=== PATIENT | female | born 1975 | race African-American/Black ===

== ENCOUNTER 2019-05-07 05:27 | Emergency (ER) | payer OTHER ==
[~2019-05-07] VITALS: Ht 175.3 cm; Wt 113.4 kg
[2019-05-07 05:34] VITALS: BP 151/88
[2019-05-07 06:57] LABS: Basophils # (auto) 0.1 uL; Eosinophils # (auto) 0.1 uL; Lymphocytes # (auto) 1.1 uL; Monocytes # (auto) 0.8 uL
[2019-05-07 06:58] LABS: Basophils % (auto) 0.8 % (0.0-2.0); Eosinophils % (auto) 1.1 % (0.0-7.0); Hematocrit 43.1 % (36.0-46.0); Hemoglobin 14.8 g/dL (12.2-16.2); Lymphocytes % (auto) 12.7 % (10.0-50.0); Mean Corpuscular Hemoglobin 33.7 pg (28.0-32.0); Mean Corpuscular Hgb Conc. 34.3 g/dL (32.0-36.0); Mean Corpuscular Volume 98.2 fL (80.0-100.0); Monocytes % (auto) 9.3 % (0.0-12.0); Neutrophils # (auto) 6.7 uL; Neutrophils % (auto) 76.1 % (37.0-80.0); Platelet Count (auto) 201 10^3/uL (140-450); Red Blood Cells 4.39 10^6/uL (4.0-5.20); Red Cell Distribution Width 15.4 % (11.8-14.3); White Blood Cell 8.7 10^3/uL (4.4-10.8)
[2019-05-07 07:29] LABS: Alanine Aminotransferase 14 U/L (13-56); Anion Gap 5 (5-15); Blood Urea Nitrogen 6 mg/dL (7-18); Calcium 8.3 mg/dL (8.5-10.1); Carbon Dioxide 25 mmol/L (21-32); Chloride 107 mmol/L (98-107); Glucose 70 mg/dL (74-106); Potassium 3.7 mmol/L (3.5-5.1); Sodium 137 mmol/L (136-145)
[2019-05-07 07:33] LABS: Alkaline Phosphatase 83 U/L (45-117); Aspartate Aminotransferase 16 U/L (15-37); BUN/Creatinine Ratio 8.3; Bilirubin, Total 1.2 mg/dL (0.2-1.0); GFR African American 113 mL/min; GFR Non-African American 94 mL/min
[2019-05-07 07:46] LABS: INR 1.01 (0.9-1.15); Partial Thromboplastin Time 27.7 sec (23.64-32.05)
== END 2019-05-07 09:51 | disposition left against medical advice (07) ==
LOC: ER 05:27
DX: R07.81 Pleurodynia (principal); Z53.21 Procedure and treatment not carried out due to patient leaving prior to being seen by health care provider
CPT/HCPCS: 36415; 71045; 80053; 83880; 84484; 85025; 85379; 85610; 85730; 93005

== ENCOUNTER 2021-11-23 11:02 | Inpatient (IN) | payer OTHER ==
[~2021-11-23] VITALS: Ht 172.7 cm; Wt 130.2 kg
[2021-11-23] MEDS ORDERED: ONDANSETRON HCL 4 MG/2 ML VIAL IV ONE ×2 (11:30→20:30)
[2021-11-23] MEDS ORDERED: MORPHINE SULFATE 4 MG/ML SYR/VIAL IV ONE ×2 (11:30→13:45)
[2021-11-23] MEDS ORDERED: SODIUM CHLORIDE 0.9% 1,000 ML IVB ONE (11:30)
[2021-11-23 12:03] LABS: Albumin 3.4 g/dL (3.4-5.0); Calcium 8.7 mg/dL (8.5-10.1)
[2021-11-23 12:08] LABS: BUN/Creatinine Ratio 10.8; Bilirubin, Total 1.8 mg/dL (0.2-1.0); Total Protein 7.6 g/dL (6.4-8.2)
[2021-11-23 12:10] LABS: Basophils # (auto) 0 10 ^3/uL (0-0.2); Basophils % (auto) 0.9 % (0.0-2.0); Eosinophils # (auto) 0.1 10 ^3/uL (0-0.8); Eosinophils % (auto) 2.4 % (0.0-7.0); Hematocrit 41.4 % (36.0-46.0); Hemoglobin 13.2 g/dL (12.2-16.2); Lymphocytes % (auto) 23.3 % (10.0-50.0); Mean Corpuscular Hemoglobin 27.3 pg (28.0-32.0); Mean Corpuscular Hgb Conc. 31.9 g/dL (32.0-36.0); Mean Corpuscular Volume 85.5 fL (80.0-100.0); Monocytes # (auto) 0.4 10 ^3/uL (0-1.3); Monocytes % (auto) 8.9 % (0.0-12.0); Neutrophils # (auto) 2.7 10 ^3/uL (1.6-8.6); Neutrophils % (auto) 64.5 % (37.0-80.0); Nucleated Red Blood Cells % 0.1 %; Red Blood Cells 4.84 10^6/uL (4.0-5.20); Red Cell Distribution Width 18.7 % (11.8-14.3); White Blood Cell 4.2 10^3/uL (4.4-10.8)
[2021-11-23 13:18] LABS: Urine Bacteria FEW /hpf (None Seen); Urine Blood Negative /uL (Negative); Urine Mucus FEW (None Seen); Urine Specific Gravity 1.028 (1.001-1.035); Urine WBC 3 /hpf (0 - 5)
[2021-11-23] MEDS ORDERED: HYDROmorphone HCL 2 MG/ML VL/or syr IV ONE ×2 (15:30→20:30)
[2021-11-23] MEDS ORDERED: PROCHLORPERAZINE EDISYLATE 5 MG/ML 2ML VIAL IV ONE (15:30)
[2021-11-23] MEDS ORDERED: POTASSIUM CHL 20 Meq TABLET PO ONE (17:00)
[2021-11-23] MEDS ORDERED: POTASSIUM CHL 20MEQ/100ML 100 ML IV ONE (17:00)
[2021-11-24] MEDS ORDERED: MORPHINE SULFATE INJ 2 MG/ml SYRG IV PRN (02:45)
[2021-11-24] MEDS ORDERED: HYDROcodone-ACET 5/325MG TAB PO PRN (02:45)
[2021-11-24] MEDS ORDERED: ONDANSETRON HCL 4 MG/2 ML VIAL IV PRN (02:45)
[2021-11-24] MEDS ORDERED: TEMAZEPAM 15 MG CAP PO PRN (02:45)
[2021-11-24] MEDS: PANTOPRAZOLE 40 MG TAB PO SCH (10:27)
[2021-11-24] MEDS: ATENOLOL 50 MG TAB PO SCH (10:31)
[2021-11-24] MEDS: ACETAMINOPHEN 325 MG TAB PO PRN ×2 (10:54→23:32)
[2021-11-24] MEDS ORDERED: metroNIDAZOLE 500MG/100ML 100 ML IV ONE (12:00)
[2021-11-24 17:01] VITALS: BP 150/82
[2021-11-24 17:19] VITALS: BP 150/82
[2021-11-24 19:50] VITALS: BP 167/99
[2021-11-24] MEDS: metroNIDAZOLE 500MG/100ML 100 ML IV SCH (20:35)
[2021-11-24] MEDS ORDERED: HYDR25TA4 PO (20:39)
[2021-11-24] MEDS ORDERED: HYDR200T36 PO (20:39)
[2021-11-24] MEDS ORDERED: ATEN100T PO (20:39)
[2021-11-24 22:00] VITALS: BP 167/79
[2021-11-24] MEDS ORDERED: hydrALAZINE HCL 20 MG/ML VL IV ONE (23:00)
[2021-11-24] MEDS ORDERED: hydrALAZINE HCL 20 MG/ML VL ONE (23:25)
[2021-11-25] VITALS (7 sets, daily range): BP systolic 142–159; BP diastolic 67–89
[2021-11-25] MEDS: metroNIDAZOLE 500MG/100ML 100 ML IV SCH ×3 (04:12→20:00)
[2021-11-25 05:55] LABS: Basophils # (auto) 0 10 ^3/uL (0-0.2); Basophils % (auto) 0.5 % (0.0-2.0); Eosinophils # (auto) 0.1 10 ^3/uL (0-0.8); Eosinophils % (auto) 1.1 % (0.0-7.0); Hematocrit 34.7 % (36.0-46.0); Hemoglobin 11.2 g/dL (12.2-16.2); Lymphocytes # (auto) 0.5 10 ^3/uL (0.4-5.4); Lymphocytes % (auto) 8.9 % (10.0-50.0); Mean Corpuscular Hemoglobin 27.1 pg (28.0-32.0); Mean Corpuscular Hgb Conc. 32.2 g/dL (32.0-36.0); Mean Corpuscular Volume 84.2 fL (80.0-100.0); Monocytes # (auto) 0.5 10 ^3/uL (0-1.3); Monocytes % (auto) 8.2 % (0.0-12.0); Neutrophils % (auto) 81.3 % (37.0-80.0); Nucleated Red Blood Cells % 0.1 %; Red Blood Cells 4.12 10^6/uL (4.0-5.20); Red Cell Distribution Width 18.9 % (11.8-14.3); White Blood Cell 6.2 10^3/uL (4.4-10.8)
[2021-11-25 06:04] LABS: Albumin 2.6 g/dL (3.4-5.0); BUN/Creatinine Ratio 12.3
[2021-11-25 06:15] LABS: Bilirubin, Total 6.7 mg/dL (0.2-1.0); Total Protein 5.7 g/dL (6.4-8.2)
[2021-11-25 06:23] LABS: Potassium 2.7 mmol/L (3.5-5.1)
[2021-11-25] MEDS: ACETAMINOPHEN 325 MG TAB PO PRN ×2 (11:08→17:31)
[2021-11-25] MEDS: PANTOPRAZOLE 40 MG TAB PO SCH (11:08)
[2021-11-25] MEDS: ATENOLOL 50 MG TAB PO SCH (11:09)
[2021-11-25] MEDS: POTASSIUM CHL 20MEQ/100ML 100 ML IV SCH ×3 (12:30→14:30)
[2021-11-25 19:37] LABS: BUN/Creatinine Ratio 7.3; Calcium 8.3 mg/dL (8.5-10.1)
[2021-11-25 19:43] LABS: Potassium 2.9 mmol/L (3.5-5.1)
[2021-11-25] MEDS ORDERED: POTASSIUM EFFERVESENT TAB 25 MEQ PO ONE (23:45)
[2021-11-26] MEDS: metroNIDAZOLE 500MG/100ML 100 ML IV SCH ×3 (03:47→19:57)
[2021-11-26 05:26] VITALS: BP 161/83
[2021-11-26] MEDS: ACETAMINOPHEN 325 MG TAB PO PRN (05:43)
[2021-11-26 07:10] LABS: Potassium 3.1 mmol/L (3.5-5.1)
[2021-11-26 07:30] LABS: BUN/Creatinine Ratio 6.6
[2021-11-26 09:00] VITALS: BP 114/81
[2021-11-26] MEDS: ATENOLOL 50 MG TAB PO SCH (10:31)
[2021-11-26] MEDS: PANTOPRAZOLE 40 MG TAB PO SCH (10:31)
[2021-11-26] MEDS ORDERED: POTASSIUM EFFERVESENT TAB 25 MEQ GT ONE (10:45)
[2021-11-26 13:00] VITALS: BP 117/84
[2021-11-26] MEDS ORDERED: SODIUM CHLORIDE 0.9% 1,000 ML IV ONE (13:45)
[2021-11-26] MEDS ORDERED: CEFTRIAXONE SODIUM 2 GM in D5W 5% 50 ML IV ONE (13:45)
[2021-11-26 17:00] VITALS: BP 151/60
[2021-11-26 19:07] VITALS: BP 114/81
== END 2021-11-26 21:33 | disposition short-term general hospital (02) | DRG 445 ==
LOC: ER 11:06 → OVERFLOW 11-24 02:44 → WEST WING 11-24 16:54
PROVIDERS: ADMIT Nurse Practitioner; ATTEND Internal Medicine Pulmonary Disease
DX: K80.20 Calculus of gallbladder without cholecystitis without obstruction (principal); Z68.41 Body mass index [BMI] 40.0-44.9, adult; E66.01 Morbid (severe) obesity due to excess calories; F17.210 Nicotine dependence, cigarettes, uncomplicated; I10 Essential (primary) hypertension; K43.9 Ventral hernia without obstruction or gangrene; R74.01 Elevation of levels of liver transaminase levels; Z20.822 Contact with and (suspected) exposure to COVID-19; E87.6 Hypokalemia; F41.9 Anxiety disorder, unspecified; N83.201 Unspecified ovarian cyst, right side; R79.89 Other specified abnormal findings of blood chemistry; Z82.49 Family history of ischemic heart disease and other diseases of the circulatory system; Z98.84 Bariatric surgery status; Z83.3 Family history of diabetes mellitus; Z98.51 Tubal ligation status
CPT/HCPCS: 36415; 74176; 78226; 80048; 80053; 81001; 82150; 83690; 85025; 96361; 96365; 96366; 96375; 96376; G0378; J0696; J2405; J3480; J3490; J7060

== ENCOUNTER 2023-07-27 15:09 | Inpatient (IN) | payer OTHER ==
[~2023-07-27] VITALS: Ht 172.7 cm; Wt 125.7 kg
[~2023-07-27 15:09] MED LIST: ATEN100T PO; HYDR200T36 PO; HYDR25TA4 PO
[2023-07-27 17:21] LABS: Basophils # (auto) 0 10 ^3/uL (0-0.2); Basophils % (auto) 0.6 % (0.0-2.0); Eosinophils # (auto) 0 10 ^3/uL (0-0.8); Hematocrit 38.8 % (36.0-46.0); Hemoglobin 12.1 g/dL (12.2-16.2); Lymphocytes # (auto) 0.8 10 ^3/uL (0.4-5.4); Lymphocytes % (auto) 11.9 % (10.0-50.0); Mean Corpuscular Hemoglobin 24.1 pg (28.0-32.0); Mean Corpuscular Hgb Conc. 31.1 g/dL (32.0-36.0); Mean Corpuscular Volume 77.4 fL (80.0-100.0); Monocytes # (auto) 0.4 10 ^3/uL (0-1.3); Monocytes % (auto) 6.6 % (0.0-12.0); Neutrophils # (auto) 5.1 10 ^3/uL (1.6-8.6); Neutrophils % (auto) 80.9 % (37.0-80.0); Nucleated Red Blood Cells % 0.1 %; Red Blood Cells 5.02 10^6/uL (4.0-5.20); Red Cell Distribution Width 21.3 % (11.8-14.3); White Blood Cell 6.4 10^3/uL (4.4-10.8)
[2023-07-27 17:37] LABS: Alanine Aminotransferase 10 U/L (7-40); Albumin 4.6 g/dL (3.2-4.8); Alkaline Phosphatase 107 U/L (46-116); Anion Gap 6 (5-15); Aspartate Aminotransferase 20 U/L (13-40); Blood Urea Nitrogen 6 mg/dL (9-23); Calcium 10.5 mg/dL (8.5-10.1); Carbon Dioxide 29 mmol/L (20-30); Chloride 102 mmol/L (98-107); Glucose 112 mg/dL (74-106); Sodium 137 mmol/L (136-145)
[2023-07-27 17:38] LABS: Bilirubin, Total 1.6 mg/dL (0.2-1.0); Total Protein 8.1 g/dL (5.7-8.2)
[2023-07-27 20:08] VITALS: PULSE 62; RESP 16; O2SAT 99
[2023-07-27] MEDS: MORPHINE SULFATE 4 MG/ML SYR/VIAL IV ONE ×2 (20:10→22:01)
[2023-07-27] MEDS: ONDANSETRON HCL 4 MG/2 ML VIAL IV ONE (20:10)
[2023-07-27] MEDS: SODIUM CHLORIDE 0.9% 1,000 ML IV ONE (21:03)
[2023-07-27] MEDS: hydrALAZINE HCL 20 MG/ML VL IV ONE (21:05)
[2023-07-28 00:10] VITALS: PULSE 76; RESP 20; O2SAT 96
[2023-07-28] MEDS: ONDANSETRON HCL 4 MG/2 ML VIAL IV ONE (02:07)
[2023-07-28] MEDS: MORPHINE SULFATE 4 MG/ML SYR/VIAL IV ONE (02:08)
[2023-07-28] MEDS: hydrALAZINE HCL 20 MG/ML VL IV PRN (03:11)
[2023-07-28] MEDS: SODIUM CHLORIDE 0.9% 1,000 ML IV SCH (03:11)
[2023-07-28 03:26] LABS: INR 1.08 (0.9-1.15); Partial Thromboplastin Time 23.7 SEC (24.5-34.5); Prothrombin Time 11.4 sec (9.3-11.8)
[2023-07-28] MEDS: ONDANSETRON HCL 4 MG/2 ML VIAL IV PRN (04:06)
[2023-07-28] MEDS: MORPHINE SULFATE INJ 2 MG/ml SYRG IV PRN (04:07)
[2023-07-28 08:26] LABS: Chloride 102 mmol/L (98-107); Potassium 2.8 mmol/L (3.5-5.1); Sodium 137 mmol/L (136-145)
[2023-07-28 08:27] LABS: Anion Gap 6 (5-15); Calcium 10.1 mg/dL (8.5-10.1); Carbon Dioxide 29 mmol/L (20-30)
[2023-07-28 08:30] LABS: Basophils # (auto) 0 10 ^3/uL (0-0.2); Eosinophils # (auto) 0 10 ^3/uL (0-0.8); Mean Corpuscular Hgb Conc. 31.3 g/dL (32.0-36.0); Monocytes # (auto) 0.9 10 ^3/uL (0-1.3); Neutrophils % (auto) 72.5 % (37.0-80.0); Red Blood Cells 4.72 10^6/uL (4.0-5.20)
[2023-07-28 08:32] LABS: BUN/Creatinine Ratio 12.5 (10.0-20.0); Basophils % (auto) 0.6 % (0.0-2.0); Blood Urea Nitrogen 8 mg/dL (9-23); Glucose 120 mg/dL (74-106); Hematocrit 36.5 % (36.0-46.0); Hemoglobin 11.4 g/dL (12.2-16.2); Lymphocytes % (auto) 14.1 % (10.0-50.0); Mean Corpuscular Hemoglobin 24.1 pg (28.0-32.0); Mean Corpuscular Volume 77.2 fL (80.0-100.0); Monocytes % (auto) 12.8 % (0.0-12.0); Neutrophils # (auto) 5.2 10 ^3/uL (1.6-8.6); Nucleated Red Blood Cells % 0.2 %; White Blood Cell 7.2 10^3/uL (4.4-10.8)
[2023-07-28 08:42] LABS: Red Cell Distribution Width 21.3 % (11.8-14.3)
[2023-07-28] MEDS ORDERED: DexAMETHasone SOD PHOS 10MG/1ML VIAL INJ ONE (09:18)
[2023-07-28] MEDS ORDERED: PROPOFOL 10 MG/ML 20 ML IV ONE (09:18)
[2023-07-28] MEDS ORDERED: MIDAZOLAM HCL 2MG/2ML 2ml VIAL (1mg/ml) ONE (09:18)
[2023-07-28] MEDS ORDERED: fentaNYL CITRATE 100 MCG/2 ML VL ONE (09:18)
[2023-07-28] MEDS ORDERED: MEPERIDINE HCL (50 MG/ML) 1 ML VIAL ONE (09:18)
[2023-07-28] MEDS: SUCCINYLCHOLINE CHLORIDE 20 MG/ML 10ML VIAL IV ONE (09:19)
[2023-07-28] MEDS: LIDOCAINE W/ EPINEPHRINE 1% 20ML VIAL ONE (09:24)
[2023-07-28] MEDS ORDERED: MORPHINE SULFATE 4 MG/ML SYR/VIAL IV PRN ×2 (09:45→12:30)
[2023-07-28] MEDS: ceFAZolin 2 GM/D5W50ml 50 ML IV ONE (09:59)
[2023-07-28] MEDS: POTASSIUM CHL 20MEQ/100ML 100 ML IV ONE ×2 (10:03→10:59)
[2023-07-28] MEDS: LIDOCAINE 2% JELLY 11ml (GLYDO) ONE (10:08)
[2023-07-28] MEDS ORDERED: ROCURONIUM 10MG/ML 10ML VIAL IV ONE (10:29)
[2023-07-28] MEDS: ceFAZolin 1GM VL ONE (11:35)
[2023-07-28] MEDS ORDERED: SUGAMMADEX 200mg/2ml Vial (100MG/ML) IV ONE (12:11)
[2023-07-28 12:18] VITALS: RESP 16; O2SAT 100
[2023-07-28] MEDS ORDERED: ePHEDrine SULFATE 50 MG/ML AMP IV PRN (12:30)
[2023-07-28] MEDS ORDERED: ONDANSETRON HCL 4 MG/2 ML VIAL IV ONE (12:30)
[2023-07-28] MEDS ORDERED: hydrALAZINE HCL 20 MG/ML VL IV PRN (12:30)
[2023-07-28] MEDS ORDERED: LABETALOL HCL 5 MG/ML 4ML SYRINGE IV PRN (12:30)
[2023-07-28] MEDS ORDERED: HYDROmorphone HCL 2 MG/ML VL/or syr ONE (12:35)
[2023-07-28] MEDS: HYDROmorphone HCL 2 MG/ML VL/or syr IV PRN (12:40)
[2023-07-28] MEDS: MIDAZOLAM HCL 2MG/2ML 2ml VIAL (1mg/ml) IV PRN (12:57)
[2023-07-28] MEDS ORDERED: NICOTINE 14 MG/24HR TOPICAL PATCH TD ONE (13:00)
[2023-07-28] MEDS: MORPHINE SULFATE 4 MG/ML SYR/VIAL IV PRN (19:02)
[2023-07-28 20:00] VITALS: PULSE 87; RESP 16; O2SAT 100
[2023-07-28 20:52] VITALS: BP 160/70; PULSE 87; RESP 16; TEMP 98.4; O2SAT 100
[2023-07-28 23:08] LABS: Urine Bacteria None Seen /hpf (None Seen)
[2023-07-28 23:52] LABS: Urine Blood Negative /uL (Negative); Urine Clarity Clear (Clear); Urine Color Yellow (Yellow); Urine Hyaline Cast FEW /lpf (0 - 2); Urine Mucus FEW (None Seen); Urine Protein, UAD TRACE (Negative); Urine Specific Gravity 1.027 (1.001-1.035); Urine Urobilinogen Normal (Negative); Urine WBC 3 /hpf (0 - 5); Urine pH 5.5 (5.0-9.0)
[2023-07-29] VITALS (9 sets, daily range): BP systolic 155–180; BP diastolic 74–82; PULSE 78–88; RESP 16–20; TEMP 98.1–98.8; O2SAT 95–100
[2023-07-29 06:09] LABS: Basophils # (auto) 0 10 ^3/uL (0-0.2); Eosinophils # (auto) 0 10 ^3/uL (0-0.8); Eosinophils % (auto) 0.1 % (0.0-7.0); Lymphocytes # (auto) 1.2 10 ^3/uL (0.4-5.4); Neutrophils # (auto) 4.9 10 ^3/uL (1.6-8.6); Red Blood Cells 3.74 10^6/uL (4.0-5.20)
[2023-07-29 06:12] LABS: Basophils % (auto) 0.3 % (0.0-2.0); Hematocrit 29.7 % (36.0-46.0); Hemoglobin 9.2 g/dL (12.2-16.2); Lymphocytes % (auto) 17.2 % (10.0-50.0); Mean Corpuscular Hemoglobin 24.7 pg (28.0-32.0); Mean Corpuscular Hgb Conc. 31.2 g/dL (32.0-36.0); Mean Corpuscular Volume 79.3 fL (80.0-100.0); Monocytes # (auto) 0.8 10 ^3/uL (0-1.3); Monocytes % (auto) 11.8 % (0.0-12.0); Neutrophils % (auto) 70.6 % (37.0-80.0); White Blood Cell 6.9 10^3/uL (4.4-10.8)
[2023-07-29 06:17] LABS: Alkaline Phosphatase 65 U/L (46-116); Anion Gap 6 (5-15); Aspartate Aminotransferase 12 U/L (13-40); BUN/Creatinine Ratio 11.5 (10.0-20.0); Bilirubin, Total 0.7 mg/dL (0.2-1.0); Blood Urea Nitrogen 6 mg/dL (9-23); Calcium 8.3 mg/dL (8.7-10.4); Carbon Dioxide 24 mmol/L (20-30); Chloride 111 mmol/L (98-107); Glucose 78 mg/dL (74-106); Magnesium 1.9 mg/dL (1.6-2.6); Potassium 2.9 mmol/L (3.5-5.1); Sodium 141 mmol/L (136-145); Total Protein 5.5 g/dL (5.7-8.2)
[2023-07-29 06:21] LABS: Red Cell Distribution Width 21.4 % (11.8-14.3)
[2023-07-29 06:37] LABS: Alanine Aminotransferase < 9 U/L (7-40)
[2023-07-29] MEDS: PANTOPRAZOLE 40 MG/10 ML VIAL INJ IV SCH (08:52)
[2023-07-29] MEDS: NICOTINE 14 MG/24HR TOPICAL PATCH TD SCH (08:53)
[2023-07-29] MEDS: MAGNESIUM SULFATE 1GM/100ML 100 ML IV SCH (11:00)
[2023-07-29] MEDS: POTASSIUM CHLORIDE 60 MEQ, LIDOCAINE 1% (LOCAL ANESTH.) 6 ML in SODIUM CHL 0.9% 500 ML IV ONE (11:24)
[2023-07-29] MEDS: MORPHINE SULFATE 4 MG/ML SYR/VIAL IV PRN (16:14)
[2023-07-29] MEDS: ACETAMINOPHEN 325 MG TAB PO PRN (19:07)
[2023-07-30] VITALS (8 sets, daily range): BP systolic 123–169; BP diastolic 46–95; PULSE 74–90; RESP 17–18; TEMP 98–102.5; O2SAT 93–99
[2023-07-30 06:30] LABS: Basophils # (auto) 0 10 ^3/uL (0-0.2); Eosinophils # (auto) 0 10 ^3/uL (0-0.8); Hemoglobin 9.4 g/dL (12.2-16.2); Mean Corpuscular Hemoglobin 24.5 pg (28.0-32.0); Monocytes # (auto) 0.7 10 ^3/uL (0-1.3); White Blood Cell 6.1 10^3/uL (4.4-10.8)
[2023-07-30 06:33] LABS: Basophils % (auto) 0.4 % (0.0-2.0); Eosinophils % (auto) 0.2 % (0.0-7.0); Hematocrit 29.9 % (36.0-46.0); Lymphocytes # (auto) 0.8 10 ^3/uL (0.4-5.4); Lymphocytes % (auto) 13.4 % (10.0-50.0); Mean Corpuscular Hgb Conc. 31.3 g/dL (32.0-36.0); Mean Corpuscular Volume 78.1 fL (80.0-100.0); Monocytes % (auto) 11.6 % (0.0-12.0); Neutrophils # (auto) 4.5 10 ^3/uL (1.6-8.6); Neutrophils % (auto) 74.4 % (37.0-80.0); Nucleated Red Blood Cells % 0.1 %; Red Blood Cells 3.83 10^6/uL (4.0-5.20); Red Cell Distribution Width 21.3 % (11.8-14.3)
[2023-07-30 06:36] LABS: Anion Gap 7 (5-15); Carbon Dioxide 21 mmol/L (20-30); Chloride 111 mmol/L (98-107); Sodium 139 mmol/L (136-145)
[2023-07-30 06:37] LABS: Calcium 7.9 mg/dL (8.7-10.4)
[2023-07-30 06:41] LABS: Glucose 70 mg/dL (74-106)
[2023-07-30 06:42] LABS: BUN/Creatinine Ratio 11.5 (10.0-20.0); Blood Urea Nitrogen 6 mg/dL (9-23); Magnesium 2.1 mg/dL (1.6-2.6)
[2023-07-30] MEDS: POTASSIUM CHLORIDE 60 MEQ, LIDOCAINE 1% (LOCAL ANESTH.) 6 ML in SODIUM CHL 0.9% 500 ML IV ONE (11:53)
[2023-07-31] VITALS (8 sets, daily range): BP systolic 157–183; BP diastolic 74–93; PULSE 71–88; RESP 18–20; TEMP 98.7–99.9; O2SAT 95–100
[2023-07-31 05:56] LABS: Basophils # (auto) 0 10 ^3/uL (0-0.2); Eosinophils # (auto) 0.1 10 ^3/uL (0-0.8); Lymphocytes # (auto) 0.6 10 ^3/uL (0.4-5.4); Monocytes # (auto) 0.7 10 ^3/uL (0-1.3); Neutrophils # (auto) 6.3 10 ^3/uL (1.6-8.6)
[2023-07-31 05:58] LABS: Chloride 107 mmol/L (98-107); Potassium 3.2 mmol/L (3.5-5.1); Sodium 135 mmol/L (136-145)
[2023-07-31 05:59] LABS: Anion Gap 7 (5-15); Basophils % (auto) 0.4 % (0.0-2.0); Carbon Dioxide 21 mmol/L (20-30); Eosinophils % (auto) 0.9 % (0.0-7.0); Hemoglobin 9.1 g/dL (12.2-16.2); Lymphocytes % (auto) 8.3 % (10.0-50.0); Mean Corpuscular Hemoglobin 24.3 pg (28.0-32.0); Mean Corpuscular Hgb Conc. 31.3 g/dL (32.0-36.0); Mean Corpuscular Volume 77.5 fL (80.0-100.0); Monocytes % (auto) 8.7 % (0.0-12.0); Neutrophils % (auto) 81.7 % (37.0-80.0); Red Blood Cells 3.74 10^6/uL (4.0-5.20); Red Cell Distribution Width 21.8 % (11.8-14.3); White Blood Cell 7.7 10^3/uL (4.4-10.8)
[2023-07-31 06:00] LABS: Calcium 8.3 mg/dL (8.7-10.4)
[2023-07-31 06:05] LABS: BUN/Creatinine Ratio 11.3 (10.0-20.0); Blood Urea Nitrogen 6 mg/dL (9-23); Glucose 77 mg/dL (74-106)
[2023-07-31] MEDS: HYDROcodone-ACET 5/325MG TAB PO PRN (11:54)
[2023-07-31] MEDS: POTASSIUM CHL 20 Meq TABLET PO ONE (16:51)
[2023-07-31] MEDS: PANTOPRAZOLE 40 MG TAB PO ONE (16:51)
[2023-07-31] MEDS: ATENOLOL 25 MG TAB PO ONE (20:07)
[2023-08-01 01:00] VITALS: BP 147/80; PULSE 73; RESP 20; TEMP 98.4; O2SAT 95
[2023-08-01 05:00] VITALS: BP 162/75; PULSE 65; RESP 22; TEMP 98.8; O2SAT 98
[2023-08-01 06:16] LABS: Basophils # (auto) 0 10 ^3/uL (0-0.2); Eosinophils # (auto) 0.3 10 ^3/uL (0-0.8); Lymphocytes # (auto) 0.9 10 ^3/uL (0.4-5.4); Mean Corpuscular Hemoglobin 24.2 pg (28.0-32.0); Neutrophils # (auto) 3.7 10 ^3/uL (1.6-8.6)
[2023-08-01 06:19] LABS: Basophils % (auto) 0.8 % (0.0-2.0); Eosinophils % (auto) 4.5 % (0.0-7.0); Hematocrit 30.3 % (36.0-46.0); Hemoglobin 9.5 g/dL (12.2-16.2); Lymphocytes % (auto) 15.1 % (10.0-50.0); Mean Corpuscular Hgb Conc. 31.4 g/dL (32.0-36.0); Monocytes % (auto) 16.7 % (0.0-12.0); Neutrophils % (auto) 62.9 % (37.0-80.0); Nucleated Red Blood Cells % 0.1 %; Red Blood Cells 3.94 10^6/uL (4.0-5.20); Red Cell Distribution Width 21.2 % (11.8-14.3); White Blood Cell 5.9 10^3/uL (4.4-10.8)
[2023-08-01 06:31] LABS: Calcium 8.5 mg/dL (8.7-10.4); Chloride 105 mmol/L (98-107); Potassium 3.4 mmol/L (3.5-5.1); Sodium 133 mmol/L (136-145)
[2023-08-01 06:32] LABS: Anion Gap 6 (5-15); Carbon Dioxide 22 mmol/L (20-30)
[2023-08-01 06:37] LABS: Glucose 85 mg/dL (74-106)
[2023-08-01 06:42] LABS: BUN/Creatinine Ratio 9.4 (10.0-20.0); Blood Urea Nitrogen < 5 mg/dL (9-23)
[2023-08-01] MEDS ORDERED: DOCU-94 PO (07:11)
[2023-08-01 08:00] VITALS: BP 153/81; PULSE 68; RESP 20; TEMP 99.3; O2SAT 100
[2023-08-01 08:43] VITALS: BP 153/81; PULSE 68; RESP 20; TEMP 99.3; O2SAT 100
[2023-08-01 09:00] VITALS: BP 153/81; PULSE 68; RESP 20; TEMP 99.3; O2SAT 100
[2023-08-01] MEDS: ATENOLOL 25 MG TAB PO SCH (09:28)
[2023-08-01] MEDS: PANTOPRAZOLE 40 MG TAB PO SCH (09:29)
== END 2023-08-01 10:30 | disposition home or self-care (01) | DRG 354 ==
LOC: ER 15:09 → OVERFLOW 07-28 02:39 → CENTRAL 07-28 15:18
PROVIDERS: ADMIT Nurse Practitioner; ATTEND Internal Medicine
PROC: 0WUF0JZ Supplement Abdominal Wall with Synthetic Substitute, Open Approach (ICD-10-PCS; principal; 2023-07-28 10:16)
DX: K43.6 Other and unspecified ventral hernia with obstruction, without gangrene (principal); Z68.41 Body mass index [BMI] 40.0-44.9, adult; I10 Essential (primary) hypertension; E66.9 Obesity, unspecified; E87.6 Hypokalemia; F41.9 Anxiety disorder, unspecified; F17.210 Nicotine dependence, cigarettes, uncomplicated; N83.9 Noninflammatory disorder of ovary, fallopian tube and broad ligament, unspecified; K66.0 Peritoneal adhesions (postprocedural) (postinfection); Z88.6 Allergy status to analgesic agent; Z98.51 Tubal ligation status; Z82.49 Family history of ischemic heart disease and other diseases of the circulatory system; Z83.3 Family history of diabetes mellitus; Z98.84 Bariatric surgery status
CPT/HCPCS: 36415; 71045; 74176; 76856; 80048; 80053; 81001; 83605; 83735; 84702; 85025; 85610; 85730; 86850; 86900; 86901; 87040; 97110; 97116; 97163; 97530; C9113; G0378; J0330; J0690; J1100; J2001; J2250; J2405; J2704; J3480